=== PATIENT | male | born 1960 | race Hispanic/Latino ===

== ENCOUNTER 2021-05-11 16:17 | Emergency (ER) | payer MEDICAID, OTHER ==
[~2021-05-11] VITALS: Ht 167.6 cm; Wt 87.5 kg
[2021-05-11 16:46] LABS: BASOPHILS % (AUTO) 0.8 % (0.0-5.0); EOSINOPHILS % (AUTO) 4.1 % (0.0-8.0); LYMPHOCYTES % (AUTO) 29.9 % (21.0-51.0); MEAN CORPUSCULAR HEMOGLOBIN 26.5 pg (27.0-33.0); MEAN CORPUSCULAR HGB CONC 32.7 g/dL (32.0-36.0); MONOCYTES % (AUTO) 7.1 % (3.0-13.0); NEUTROPHILS % (AUTO) 57.7 % (40.0-77.0); PLATELET COUNT (AUTO) 254 K/uL (130-400); RED BLOOD CELL COUNT(AUTO) 4.57 MIL/uL (4.50-6.20); RED CELL DISTRIBUTION WIDTH 13.4 % (11.0-15.5); WHITE BLOOD COUNT (AUTO) 9.8 K/uL (4.8-10.8)
[2021-05-11 17:08] LABS: CREATININE 0.7 mg/dL (0.5-1.5)
[2021-05-11 17:10] LABS: APPEARANCE,URINE Clear (CLEAR); BILIRUBIN,URINE Negative (NEGATIVE); COLOR,URINE Yellow (YELLOW); GLUCOSE, URINE (UA) Negative (NEGATIVE); KETONES,URINE Negative (NEGATIVE); LEUKOCYTE ESTERASE ,URINE Negative (NEGATIVE); NITRATE,URINE Negative (NEGATIVE); OCCULT BLOOD,URINE Nonhemolyzed Trace (NEGATIVE); PROTEIN,URINE Negative (NEGATIVE)
[2021-05-11 17:17] LABS: WBC,URINE 0-1 /HPF (0-1)
[2021-05-11 17:18] LABS: BACTERIA,URINE Rare /HPF (None Seen); SQUAMOUS EPITHELIAL CELL,UR Rare /HPF (0-2)
[2021-05-11 17:19] LABS: ALBUMIN 4.1 g/dL (3.5-5.0); BILIRUBIN,TOTAL 0.4 mg/dL (0.2-1.0); TOTAL PROTEIN, SERUM 7.7 g/dL (6.0-8.3)
[2021-05-11 17:29] VITALS: BP 165/75
[2021-05-11] MEDS ORDERED: 0.9% NACL 500ML IV.SOLN 500 ML IV ONE (18:00)
== END 2021-05-11 18:41 | disposition home or self-care (01) ==
LOC: EDH 16:17
DX: E11.65 Type 2 diabetes mellitus with hyperglycemia (principal); R53.1 Weakness; R51.9 Headache, unspecified; I10 Essential (primary) hypertension; Z86.73 Personal history of transient ischemic attack (TIA), and cerebral infarction without residual deficits
CPT/HCPCS: 36415; 80053; 81001; 82550; 83874; 84484; 85025; 93005

== ENCOUNTER → 2021-05-16 | Outpatient (CLI) | payer MEDICAID, OTHER | END | disposition home or self-care (01) | LOC: SHCH 13:15 | PROVIDERS: ATTEND Student in an Organized Health Care Education/Training Program | DX: I35.2 Nonrheumatic aortic (valve) stenosis with insufficiency (principal); I11.9 Hypertensive heart disease without heart failure; E78.5 Hyperlipidemia, unspecified | CPT/HCPCS: 93306 ==

== ENCOUNTER → 2022-07-01 | Outpatient (CLI) | payer MEDICARE | END | disposition home or self-care (01) | LOC: SHCH 09:56 | PROVIDERS: ATTEND Student in an Organized Health Care Education/Training Program | DX: I35.0 Nonrheumatic aortic (valve) stenosis (principal) | CPT/HCPCS: 93306 ==

== ENCOUNTER 2023-02-11 17:02 | Emergency (ER) | payer MEDICARE ==
[~2023-02-11] VITALS: Ht 167.6 cm; Wt 88.5 kg
[2023-02-11 17:27] VITALS: BP 126/72; PULSE 67; RESP 16
[2023-02-11] MEDS ORDERED: HYDROCODONE/ACETAMINOPHEN 5/325 MG TAB PO ONE (19:30)
[2023-02-11] MEDS ORDERED: KETOROLAC 60 MG VIAL (30MG/ML) IM ONE (19:30)
[2023-02-11] MEDS ORDERED: NAPR-1023 PO (21:14)
[2023-02-11] MEDS ORDERED: CYCL5TAB PO (21:14)
[2023-02-11] MEDS ORDERED: ACET-2079 PO (21:14)
== END 2023-02-11 21:28 | disposition home or self-care (01) ==
LOC: EDH 17:02
DX: S16.1XXA Strain of muscle, fascia and tendon at neck level, initial encounter (principal); M54.50 Low back pain, unspecified; M54.6 Pain in thoracic spine; R51.9 Headache, unspecified; E11.9 Type 2 diabetes mellitus without complications; I10 Essential (primary) hypertension; Z86.73 Personal history of transient ischemic attack (TIA), and cerebral infarction without residual deficits; V89.2XXA Person injured in unspecified motor-vehicle accident, traffic, initial encounter; Y93.89 Activity, other specified; Y92.89 Other specified places as the place of occurrence of the external cause; Y99.8 Other external cause status
CPT/HCPCS: 99285; 70450; 72125; 72131; 72128; 96372; J1885

== ENCOUNTER → 2023-02-14 | Outpatient (CLI) | payer MEDICARE ==
[~2023-02-14] MED LIST: ACET-2079 PO; CYCL5TAB PO; NAPR-1023 PO
== END | disposition home or self-care (01) ==
LOC: SHCH 08:49
PROVIDERS: ATTEND Student in an Organized Health Care Education/Training Program
DX: I08.2 Rheumatic disorders of both aortic and tricuspid valves (principal); I11.9 Hypertensive heart disease without heart failure; E11.9 Type 2 diabetes mellitus without complications; E78.5 Hyperlipidemia, unspecified
CPT/HCPCS: 93306

== ENCOUNTER 2023-03-10 21:09 | Emergency (ER) | payer MEDICARE | END 2023-03-10 23:45 | LOC: EDH 21:09 | DX: I46.9 Cardiac arrest, cause unspecified (principal); E11.9 Type 2 diabetes mellitus without complications; E78.00 Pure hypercholesterolemia, unspecified; I10 Essential (primary) hypertension; Z86.73 Personal history of transient ischemic attack (TIA), and cerebral infarction without residual deficits | CPT/HCPCS: 92950 ==